=== PATIENT | female | born 1995 | race Caucasian/White ===

== ENCOUNTER 2018-11-23 07:19 | Day surgery (SDC) | payer OTHER ==
[2018-11-21 11:39] VITALS: BMI 21.4
[~2018-11-23 07:19] MED LIST: LACTATED RINGERS 1,000 ML IV SCH; LIDOCAINE 1% 20 ML VIAL (10MG/ML) FOR IV START INTRADERMA PRN
[2018-11-23 07:38] VITALS: TEMP 97.1
[2018-11-23] MEDS ORDERED: PROPOFOL 10 MG/ML 20 ML VIAL IV ONE (07:44)
--- NOTE | 2018-11-23 07:49 | P.GSHP ---
History of Present Illness H&P Date: 11/23/18 Chief Complaint: GERD, colitis This is a 23-year-old female presents today for EGD and colonoscopy. Patient issues with GERD and colitis. Past Medical History Past Medical History: GERD/Reflux Additional Past Medical History / Comment(s): migraine headaches, frequent left sided abd. pain, gas, bloating, N/V @times History of Any Multi-Drug Resistant Organisms: None Reported Past Surgical History: No Surgical Hx Reported Past Anesthesia/Blood Transfusion Reactions: Family History of Problems w/ Anesthesia Additional Past Anesthesia/Blood Transfusion Reaction / Comment(s): states anesthesia affects her mom's bipolar issue Smoking Status: Never smoker - Past Family History Mother Family Medical History: No Reported History Medications and Allergies Home Medications Medication Instructions Recorded Confirmed Type Cyclobenzaprine [Flexeril] 5 mg PO TID PRN 11/21/18 11/23/18 History Famotidine [Pepcid] 20 mg PO BID 11/21/18 11/23/18 History Sertraline [Zoloft] 25 mg PO DAILY 11/21/18 11/23/18 History Allergies Allergy/AdvReac Type Severity Reaction Status Date / Time No Known Allergies Allergy Verified 11/23/18 07:28 Surgical - Exam Vital Signs Temp Pulse Resp BP Pulse Ox 97.1 F L 91 17 150/81 99 11/23/18 07:35 11/23/18 07:35 11/23/18 07:35 11/23/18 07:35 11/23/18 07:35 - General well developed, well nourished, no distress - Eyes PERRL - ENT normal pinna - Neck no masses - Respiratory normal expansion - Cardiovascular Rhythm: regular - Abdomen Abdomen: soft, non tender Assessment and Plan Assessment: GERD, colitis. We'll perform EGD and colonoscopy.
[2018-11-23] MEDS ORDERED: ONDANSETRON 4 MG/2 ML VIAL IVP ONE (08:22)
[2018-11-23 08:35] VITALS: RESP 16
[2018-11-23 08:49] VITALS: BP 116/79; PULSE 86
--- NOTE | 2018-12-04 14:28 | P.OP ---
Date of Procedure: 11/23/18 Preoperative Diagnosis: GERD Colitis Postoperative Diagnosis: GERD Colitis Procedure(s) Performed: EGD Colonoscopy Anesthesia: MAC Surgeon: Robin Rivas Pathology: other (Antral, esophagus) Condition: stable Disposition: PACU Description of Procedure: N PROCEDURE: The patient was placed on the endoscopy table in the lateral position. Digital rectal examination was performed which revealed no abnormalities. Flexible colonoscope was then placed in the patient's anus and passed throughout the entire colon. The ileocecal valve was visualized. The cecum, ascending, transverse, descending and sigmoid colon were normal. The rectum was normal as well. There were no masses, polyps or diverticula noted in the entire colon. Next, the gastroscope placed oropharynx and passed in the esophagus and into the stomach. Scope then placed through the pylorus. The first and second portion of duodenum. Normal. Scope was then brought back the antrum and this was mildly inflamed. A biopsies performed. The scope was then retroflexed and the remainder of the stomach appeared normal. The GE junction was at 47 is. The distal esophagus appeared mildly inflamed a biopsies performed. The proximal esophagus appeared normal. Scope was withdrawn for patient.
== END 2018-11-23 09:03 | disposition home or self-care (01) ==
LOC: ORWHC2ENDO 07:19
PROVIDERS: ATTEND Surgery
DX: K21.9 Gastro-esophageal reflux disease without esophagitis (principal); K52.9 Noninfective gastroenteritis and colitis, unspecified; K29.50 Unspecified chronic gastritis without bleeding; K20.8 Other esophagitis; K22.8 Other specified diseases of esophagus; G43.909 Migraine, unspecified, not intractable, without status migrainosus; F39 Unspecified mood [affective] disorder; Z79.899 Other long term (current) drug therapy
CPT/HCPCS: 45378; 43239; 81025; 88305; J2405; J2704

== ENCOUNTER → 2018-11-30 | Outpatient (CLI) | payer OTHER | END | disposition home or self-care (01) | LOC: LABPAT 15:38 | PROVIDERS: ATTEND Surgery | DX: Z01.812 Encounter for preprocedural laboratory examination (principal); K21.9 Gastro-esophageal reflux disease without esophagitis | CPT/HCPCS: 86850; 86900; 86901 ==

== ENCOUNTER → 2018-12-06 | Outpatient (CLI) | payer OTHER ==
[2018-12-06 13:05] LABS: HCT 42.4 % (34.0-46.0); HGB 13.7 gm/dL (11.4-16.0); MCH 28.8 pg (25.0-35.0); MCHC 32.3 g/dL (31.0-37.0); MCV 89.2 fL (80.0-100.0); Mean Platelet Volume 7.6; Platelet Count 280 k/uL (150-450); RBC 4.75 m/uL (3.80-5.40); RDW 14.5 % (11.5-15.5); WBC 6.7 k/uL (3.8-10.6)
== END | disposition home or self-care (01) ==
LOC: LABPAT 12:31
PROVIDERS: ATTEND Surgery
DX: Z01.812 Encounter for preprocedural laboratory examination (principal); K46.9 Unspecified abdominal hernia without obstruction or gangrene
CPT/HCPCS: 36415; 85027

== ENCOUNTER 2018-12-07 06:36 | Observation (INO) | payer OTHER ==
[2018-12-04 14:49] VITALS: BMI 21.4
[~2018-12-07 06:36] MED LIST changes: +DEXAMETHASONE SOD PHOSPHATE 10 MG/ML 1 ML VIAL IV ONE; +HEPARIN SODIUM,PORCINE 5,000 UNIT/ML 1 ML VIAL SQ ONE; +HYDROmorphone 0.5 MG/0.5 ML SYRINGE IVP PRN; -LIDOCAINE 1% 20 ML VIAL (10MG/ML) FOR IV START INTRADERMA PRN; +MIDAZOLAM 2 MG/2 ML VIAL IV PRN; +ONDANSETRON 4 MG/2 ML VIAL IVP ONE; +ceFAZolin IN SWFI 2 GM/20 ML SYRINGE IVP ONE
[2018-12-07] MEDS ORDERED: LIDOCAINE 1% 20 ML VIAL (10MG/ML) FOR IV START INTRADERMA ONE (07:13)
[2018-12-07] MEDS ORDERED: FAMOTIDINE 20 MG/2 ML VIAL IV ONE (07:23)
[2018-12-07] MEDS ORDERED: SCOPOLAMINE 1.5MG/72HR PATCH TRANSDERM ONE (07:23)
[2018-12-07] MEDS ORDERED: METOCLOPRAMIDE 5 MG/ML 2 ML VIAL IVP ONE (07:23)
[2018-12-07] MEDS ORDERED: MIDAZOLAM 2 MG/2 ML VIAL ONE (07:44)
[2018-12-07] MEDS ORDERED: LIDOCAINE 1% INJ 10MG/ML (20 ML MDV) ONE (07:44)
[2018-12-07] MEDS ORDERED: NEOSTIGMINE 1 MG/ML 10 ML VIAL ONE (07:44)
[2018-12-07] MEDS ORDERED: GLYCOPYRROLATE 0.2 MG/ML 2 ML VIAL ONE (07:44)
[2018-12-07] MEDS ORDERED: fentaNYL (PF) 50 MCG/ML 2 ML AMP ONE (07:44)
[2018-12-07] MEDS ORDERED: ROCURONIUM BROMIDE 10 MG/ML 10 ML VIAL IV ONE (07:44)
[2018-12-07] MEDS ORDERED: PROPOFOL 10 MG/ML 20 ML VIAL IV ONE (07:44)
[2018-12-07] MEDS ORDERED: SUCCINYLCHOLINE CHLORIDE 100 MG/5 ML SYR IV ONE (07:44)
--- NOTE | 2018-12-07 07:50 | P.GSHP ---
History of Present Illness H&P Date: 12/07/18 Chief Complaint: GERD This a 23-year-old female referred from Dr. Vega. The patient has had long- standing problems with reflux esophagitis. The patient underwent recent EGD is found have evidence of esophagitis. Patient has been well informed on the pr ocedure of laparoscopic Cierra fundoplication. The patient is aware the risk of the conversion to the open procedure, risk of injury to the stomach, liver and spleen. The patient is also a risk of recurrent GERD and dysphagia symptoms. The patient understands there is a postoperative diet of full liquids for 2 weeks after surgery. Past Medical History Past Medical History: GERD/Reflux Additional Past Medical History / Comment(s): migraine headaches, frequent left sided abd. pain, gas, bloating, N/V @times History of Any Multi-Drug Resistant Organisms: None Reported Past Surgical History: No Surgical Hx Reported Additional Past Surgical History / Comment(s): COLONOSCOPY/EGD-11/23/18 Past Anesthesia/Blood Transfusion Reactions: Family History of Problems w/ Anesthesia Additional Past Anesthesia/Blood Transfusion Reaction / Comment(s): FELT LIKE SHE WAS HAVING A PNAIC ATTACK AFTER ANESTHESIA FOR COLONOSCOPY. states anesthesia affects her mom's bipolar issue Smoking Status: Never smoker - Past Family History Mother Family Medical History: No Reported History Medications and Allergies Home Medications Medication Instructions Recorded Confirmed Type Cyclobenzaprine [Flexeril] 5 mg PO TID PRN 11/21/18 12/07/18 History Famotidine [Pepcid] 20 mg PO BID 11/21/18 12/07/18 History Sertraline [Zoloft] 25 mg PO DAILY 11/21/18 12/07/18 History Allergies Allergy/AdvReac Type Severity Reaction Status Date / Time No Known Allergies Allergy Verified 12/07/18 07:01 Surgical - Exam Vital Signs Temp Pulse Resp BP Pulse Ox 97 F L 71 16 139/87 99 12/07/18 06:55 12/07/18 06:55 12/07/18 06:55 12/07/18 06:55 12/07/18 06:55 - General well developed, well nourished, no distress - Eyes PERRL - ENT normal pinna - Neck no masses - Respiratory normal expansion - Cardiovascular Rhythm: regular - Abdomen Abdomen: soft, non tender Assessment and Plan Assessment: GERD. We'll perform laparoscopic Cierra fundoplication.
[2018-12-07] MEDS ORDERED: BUPIVACAIN-EPI 0.25%-1:200,000 30 ML VIAL SQ ONE (08:20)
[2018-12-07] MEDS ORDERED: MEPERIDINE 50 MG/ML SYRINGE IVP ONE (09:29)
[2018-12-07] MEDS ORDERED: ONDANSETRON 4 MG/2 ML VIAL IVP ONE (09:39)
[2018-12-07] MEDS ORDERED: HYDROmorphone 0.5 MG/0.5 ML SYRINGE IVP PRN (11:50)
[2018-12-07] MEDS ORDERED: ONDANSETRON 4 MG/2 ML VIAL IVP PRN (14:14)
[2018-12-07] MEDS: HYDROmorphone 1 MG/ML 1 ML SYRINGE IVP PRN ×3 (14:35→22:19)
--- NOTE | 2018-12-07 15:21 | FL ---
EXAMINATION TYPE: FL esophagus cervic/pharynx DATE OF EXAM: 12/07/2018 LIMITED UGI-ESOPHAGRAM: CLINICAL HISTORY: Hiatal hernia with epigastric pain TECHNIQUE: Limited esophagram is performed utilizing 50 oz of Isovue-370. A total of 28 seconds of f luoroscopic time was utilized during procedure. 17 spot images are saved to PACS. FINDINGS: The patient swallowed contrast without difficulty or delay. Esophageal peristalsis and mo tility are within normal limits. There is satisfactory flow of contrast along the diaphragmatic hiatu s into the stomach, there is no evidence of contrast extravasation to suggest leak. Mild delay is pre sent. No persistent hiatal hernia is seen. Patient remains asymptomatic. IMPRESSION: No evidence of leak or significant obstruction status post Zohaib fundoplication surgery earlier today.
--- NOTE | 2018-12-07 18:07 | P.CONS ---
History of Present Illness - Reason for Consult Recommendations regarding antidepressant medications - History of Present Illness His is a pleasant 23-year-old female admitted for laparoscopic Cierra fundoplication. Patient's axis underwent surgery is comparing of pain in the epigastric area which is expected. Patient had effusions nausea vomiting dysuria. Review of Systems REVIEW OF SYSTEMS: CONSTITUTIONAL: No fever, no malaise, no fatigue. HEENT: No recent visual problems or hearing problems. Denied any sore throat. CARDIOVASCULAR: No chest pain, orthopnea, PND, no palpitations, no syncope. PULMONARY: No shortness of breath, no cough, no hemoptysis. GASTROINTESTINAL: As mentioned in HPI NEUROLOGICAL: No headaches, no weakness, no numbness. HEMATOLOGICAL: Denies any bleeding or petechiae. GENITOURINARY: Denies any burning micturition, frequency, or urgency. MUSCULOSKELETAL/RHEUMATOLOGICAL: Denies any joint pain, swelling, or any muscle pain. ENDOCRINE: Denies any polyuria or polydipsia. The rest of the 14-point review of systems is negative. Past Medical History Past Medical History: GERD/Reflux Additional Past Medical History / Comment(s): migraine headaches, frequent left sided abd. pain, gas, bloating, N/V @times History of Any Multi-Drug Resistant Organisms: None Reported Past Surgical History: No Surgical Hx Reported Additional Past Surgical History / Comment(s): COLONOSCOPY/EGD-11/23/18 Past Anesthesia/Blood Transfusion Reactions: Family History of Problems w/ Anesthesia Additional Past Anesthesia/Blood Transfusion Reaction / Comm: FELT LIKE SHE WAS HAVING A PNAIC ATTACK AFTER ANESTHESIA FOR COLONOSCOPY. states anesthesia affects her mom's bipolar issue Smoking Status: Never smoker - Past Family History Mother Family Medical History: No Reported History Medications and Allergies Home Medications Medication Instructions Recorded Confirmed Type Cyclobenzaprine [Flexeril] 5 mg PO TID PRN 11/21/18 12/07/18 History Famotidine [Pepcid] 20 mg PO BID 11/21/18 12/07/18 History Sertraline [Zoloft] 25 mg PO DAILY 11/21/18 12/07/18 History Allergies Allergy/AdvReac Type Severity Reaction Status Date / Time No Known Allergies Allergy Verified 12/07/18 14:20 Physical Exam Vitals: Vital Signs Temp Pulse Resp BP Pulse Ox 12/07/18 13:55 96 20 149/87 96 12/07/18 12:55 98.2 F 104 H 16 137/91 97 12/07/18 12:25 99 16 148/86 97 12/07/18 11:55 113 H 20 149/100 97 12/07/18 11:40 107 H 16 142/87 96 12/07/18 11:08 101 H 20 134/92 98 12/07/18 10:53 89 16 140/90 99 12/07/18 10:38 96.7 F L 87 16 132/84 97 12/07/18 10:15 97 16 135/80 100 12/07/18 10:00 99 16 133/79 100 12/07/18 09:45 84 16 140/82 100 12/07/18 09:30 93 16 151/82 100 12/07/18 09:15 90 16 142/79 100 12/07/18 09:05 97.1 F L 103 H 16 127/76 94 L 12/07/18 06:55 97 F L 71 16 139/87 99 Intake and Output 12/07/18 12/07/18 12/07/18 06:59 14:59 22:59 Intake Total 1050 Output Total 245 225 Balance 805 -225 Intake: IV 1050 Output: Urine 240 225 Estimated Blood Loss 5 Other: # Voids 1 PHYSICAL EXAMINATION: GENERAL: The patient is alert and oriented x3, not in any acute distress. Well developed, well nourished. HEENT: Pupils are round and equally reacting to light. EOMI. No scleral icterus. No conjunctival pallor. Normocephalic, atraumatic. No pharyngeal erythema. No thyromegaly. CARDIOVASCULAR: S1 and S2 present. No murmurs, rubs, or gallops. PULMONARY: Chest is clear to auscultation, no wheezing or crackles. ABDOMEN: Soft, nontender, nondistended, normoactive bowel sounds. No palpable organomegaly. Surgical site area appeared to be clean MUSCULOSKELETAL: No joint swelling or deformity. EXTREMITIES: No cyanosis, clubbing, or pedal edema. NEUROLOGICAL: Gross neurological examination did not reveal any focal deficits. SKIN: No rashes. Assessment and Plan Plan: -Status post laparoscopic Cierra fundoplication, postop management as primary service pain management as per primary service DVT prophylaxis as per primary service patient will be started on famotidine -Depression patient will be started on Zoloft -Anxiety disorder.
[2018-12-07] MEDS: HYDROcodone/APAP 5-325MG 1 EACH TAB PO PRN (19:59)
[2018-12-07] MEDS: CYCLOBENZAPRINE 5 MG TAB PO PRN (19:59)
[2018-12-07] MEDS: D5-0.45% NACL WITH KCL 20MEQ/L 1,000 ML IV SCH (20:00)
[2018-12-07] MEDS: FAMOTIDINE 20 MG TAB PO SCH (20:01)
[2018-12-08] MEDS: KETOROLAC 30 MG/ML 1 ML VIAL IVP PRN ×2 (01:06→11:32)
[2018-12-08] MEDS: HYDROmorphone 1 MG/ML 1 ML SYRINGE IVP PRN ×4 (01:08→08:47)
[2018-12-08] MEDS: D5-0.45% NACL WITH KCL 20MEQ/L 1,000 ML IV SCH ×3 (03:22→15:00)
[2018-12-08] MEDS: HYDROcodone/APAP 5-325MG 1 EACH TAB PO PRN ×3 (06:25→15:13)
[2018-12-08] MEDS: FAMOTIDINE 20 MG TAB PO SCH (08:46)
[2018-12-08] MEDS ORDERED: ENOXAPARIN 40 MG/0.4 ML SYRINGE SQ SCH (09:00)
[2018-12-08] MEDS ORDERED: SERTRALINE 25 MG TAB PO SCH (09:00)
[2018-12-08] MEDS: CYCLOBENZAPRINE 5 MG TAB PO PRN (11:32)
[2018-12-08 13:22] VITALS: BP 123/80; PULSE 61; RESP 16; TEMP 98.4
--- NOTE | 2018-12-08 13:26 | P.DS ---
Providers Date of admission: 12/07/18 18:01 Expected date of discharge: 12/08/18 Attending physician: Robin Rivas Consults: 12/07/18 14:16 Consult Physician Routine Consulting Provider: Donavon Rodas Consult Reason/Comments: med manage Do you want consulting provider notified?: Yes [facility] Course: This is a 23-year-old female who underwent laparoscopic Cierra fundal plication. Patient was discharged home on operative day 1. She she was doing well. She had no significant complaints. Procedures: Laparoscopic Cierra fundal plication Patient Condition at Discharge: Good Plan - Discharge Summary Discharge Rx Participant: Yes New Discharge Prescriptions: New Docusate [Colace] 100 mg PO BID #20 capsule HYDROcodone/APAP 5-325MG [[place] 5-325] 1 tab PO Q6HR PRN #10 tab PRN Reason: Pain No Action Cyclobenzaprine [Flexeril] 5 mg PO TID PRN PRN Reason: hip pain Sertraline [Zoloft] 25 mg PO DAILY Famotidine [Pepcid] 20 mg PO BID Discharge Medication List Cyclobenzaprine [Flexeril] 5 mg PO TID PRN 11/21/18 [History] Famotidine [Pepcid] 20 mg PO BID 11/21/18 [History] Sertraline [Zoloft] 25 mg PO DAILY 11/21/18 [History] Docusate [Colace] 100 mg PO BID #20 capsule 12/08/18 [Rx] HYDROcodone/APAP 5-325MG [[place] 5-325] 1 tab PO Q6HR PRN #10 tab 12/08/18 [Rx] Follow up Appointment(s)/Referral(s): Robin Rivas MD [STAFF PHYSICIAN] - 12/18/18 9:10 am Activity/Diet/Wound Care/Special Instructions: Continue full liquids as tolerated. Continue pain medications as needed. no tub baths swimming pools or hot tubs, showers are okay. no driving on narcotic pain medication
--- NOTE | 2018-12-08 16:02 | P.PN ---
Subjective 18-year-old admitted for laparoscopic Cierra fundoplication post surgery patient is able to tolerate diet well and patient is passing gas and the patient is complaining of some pain and burning in the surgical site area where she had ports for laparoscopy. Pain and inflammation is expected to improve Few days and patient was counseled regarding this and patient is okay to be discharged from medical perspective Constitutional: Denied any fatigue denied any fever. Cardio vascular: denied any chest pain, palpitations Gastrointestinal denied any nausea vomiting Pulmonary: Denied any shortness of breath cough Neurologic denied any new focal deficits All inpatient medications were reviewed and appropriate changes in these medications as dictated in the interval history and assessment and plan. Objective - Vital Signs Vital signs: Vital Signs Temp 98.4 F 12/08/18 12:36 Pulse 61 12/08/18 12:36 Resp 16 12/08/18 12:36 BP 123/80 12/08/18 12:36 Pulse Ox 97 12/08/18 12:36 Intake & Output 12/07/18 12/08/18 12/08/18 18:59 06:59 18:59 Intake Total 1050 120 Output Total 470 250 Balance 580 -250 120 Weight 56.699 kg Intake: IV 1050 Oral 120 Output: Urine 465 250 Estimated Blood Loss 5 Other: # Voids 1 1 1 - Exam PHYSICAL EXAMINATION: GENERAL: The patient is alert and oriented x3, not in any acute distress. Well developed, well nourished. HEENT: Pupils are round and equally reacting to light. EOMI. No scleral icterus. No conjunctival pallor. Normocephalic, atraumatic. No pharyngeal erythema. No thyromegaly. CARDIOVASCULAR: S1 and S2 present. No murmurs, rubs, or gallops. PULMONARY: Chest is clear to auscultation, no wheezing or crackles. ABDOMEN: Soft, nontender, nondistended, normoactive bowel sounds. No palpable organomegaly. Surgical site area appeared to be clean MUSCULOSKELETAL: No joint swelling or deformity. EXTREMITIES: No cyanosis, clubbing, or pedal edema. NEUROLOGICAL: Gross neurological examination did not reveal any focal deficits. SKIN: No rashes. Assessment and Plan Plan: -Status post laparoscopic Cierra fundoplication, postop management as primary service pain management as per primary service -Depression patient will be started on Zoloft -Anxiety disorder.
== END 2018-12-08 16:15 | disposition home or self-care (01) ==
LOC: OR 06:36 → 6PED 09:36 → OR 18:01 → 6PED 18:01
PROVIDERS: ADMIT Surgery; ATTEND Surgery
DX: K21.0 Gastro-esophageal reflux disease with esophagitis (principal); F32.9 Major depressive disorder, single episode, unspecified; F41.9 Anxiety disorder, unspecified; Z79.899 Other long term (current) drug therapy; Z81.8 Family history of other mental and behavioral disorders
CPT/HCPCS: 43280; 96372; 81025; 86900; 86901; 86850; 74210; G0378 ×2; J2250; J1644; J1100; J2710; J2765; J2175; J2405 ×2; J2001; J1650; J3010; J1885; J1170 ×3; J0330; J2704; J0690

== ENCOUNTER 2019-05-13 15:09 | Emergency (ER) | payer OTHER ==
[2019-05-13 15:20] VITALS: RESP 18
[2019-05-13] MEDS ORDERED: PROPARACAINE 0.5% OPHTH DROPS 15 ML BTL RIGHT EYE STA (15:37)
--- NOTE | 2019-05-13 16:01 | ED ---
General Adult HPI - General Chief complaint: Eye Problems Stated complaint: Eye infection Time Seen by Provider: 05/13/19 15:29 Source: patient, RN notes reviewed Mode of arrival: ambulatory Limitations: no limitations - History of Present Illness Initial comments: Patient presents to the emergency department for a chief complaint of right eye pain. States that for the past 2-1/2 weeks she has had swelling of the eyelid as well as a red eye. States her eye feels irritated. Denies any blurry vision. Patient does not wear contacts or glasses. Denies fevers or chills. Patient did have purulent drainage from the eye.Patient has no other complaints at this time including shortness of breath, chest pain, abdominal pain, nausea or vomiting, headache, or visual changes. - Related Data Home Medications Medication Instructions Recorded Confirmed Cyclobenzaprine [Flexeril] 5 mg PO TID PRN 11/21/18 12/07/18 Famotidine [Pepcid] 20 mg PO BID 11/21/18 12/07/18 Sertraline [Zoloft] 25 mg PO DAILY 11/21/18 12/07/18 Previous Rx's Medication Instructions Recorded Docusate [Colace] 100 mg PO BID #20 capsule 12/08/18 HYDROcodone/APAP 5-325MG [[place] 1 tab PO Q6HR PRN #10 tab 12/08/18 5-325] Allergies Allergy/AdvReac Type Severity Reaction Status Date / Time No Known Allergies Allergy Verified 05/13/19 15:18 Review of Systems ROS Statement: Those systems with pertinent positive or pertinent negative responses have been documented in the HPI. ROS Other: All systems not noted in ROS Statement are negative. Past Medical History Past Medical History: GERD/Reflux Additional Past Medical History / Comment(s): migraine headaches, frequent left sided abd. pain, gas, bloating, N/V @times History of Any Multi-Drug Resistant Organisms: None Reported Past Surgical History: No Surgical Hx Reported Additional Past Surgical History / Comment(s): COLONOSCOPY/EGD-11/23/18 Past Anesthesia/Blood Transfusion Reactions: Family History of Problems w/ Anesthesia Additional Past Anesthesia/Blood Transfusion Reaction / Comment(s): FELT LIKE SHE WAS HAVING A PNAIC ATTACK AFTER ANESTHESIA FOR COLONOSCOPY. states anesthesia affects her mom's bipolar issue Past Psychological History: Anxiety Smoking Status: Never smoker Past Alcohol Use History: Occasional Past Drug Use History: Marijuana - Past Family History Mother Family Medical History: No Reported History General Exam Limitations: no limitations General appearance: alert, in no apparent distress Head exam: Present: atraumatic, normocephalic, normal inspection Eye exam: Present: PERRL (Both pupils are equally reactive), EOMI, conjunctival injection (Erythema noted of the right conjunctiva), periorbital swelling (Patient has mild edema noted of the right eyelid, ever no induration, erythema, or tenderness to the eyelid that would be indicative of a periorbital cellulitis.). Absent: normal appearance, scleral icterus Expanded Eyelids: Swelling: Right Sclera/Conjunctival: Injection: Right Visual acuity (R) = 20/: 25 Visual acuity (L) = 20/: 30 With correction: No IOP (R) in mmH IOP (L) in mmH IOP measured with: Tonopen ENT exam: Present: normal exam, mucous membranes moist Neck exam: Present: normal inspection. Absent: tenderness, meningismus, lymphadenopathy Respiratory exam: Present: normal lung sounds bilaterally. Absent: respiratory distress, wheezes, rales, rhonchi, stridor Cardiovascular Exam: Present: regular rate, normal rhythm, normal heart sounds. Absent: systolic murmur, diastolic murmur, rubs, gallop, clicks Neurological exam: Present: alert Course Vital Signs 05/13/19 15:18 Temperature 97.5 F L Pulse Rate 70 Respiratory 18 Rate Blood Pressure 138/93 O2 Sat by Pulse 98 Oximetry Medical Decision Making - Medical Decision Making Patient presents for eye discomfort for 17 days. Patient has mild edema present to the right upper eyelid however this is not erythematous, nonindurated, and nontender. No evidence of a periorbital cellulitis. Patient does have conjunctival injection noted of the right conjunctivitis. Pupil is reactive. I did stain the eye with fluorescein stain and use Wood's lamp, no evidence for abscess or abrasion. Visual acuity is 20/25 in the right eye. Pressure of the right eye is 17, left eye 16. Patient likely has a conjunctivitis. Will be treated with erythromycin ointment given no history of contact usage. However I do want patient to follow up closely with the saloonkeeper. She does agree to call tomorrow.I discussed this case with attending Dr. Navas who agrees with this assessment and treatment plan. Disposition Clinical Impression: Conjunctivitis Disposition: HOME SELF-CARE Condition: Good Instructions (If sedation given, give patient instructions): Conjunctivitis (ED) Additional Instructions: Please use erythromycin ointment every 6 hours for the next 7 days. Follow-up with the myalgia tomorrow. Return to the emergency Department if you're having worsening symptoms or symptoms are not improving. Is patient prescribed a controlled substance at d/c from ED?: No Referrals: Callum Levy MD [STAFF PHYSICIAN] - 1-2 days Time of Disposition: 16:32
[2019-05-13] MEDS ORDERED: ERYTHROMYCIN 5 MG/GM OPHTH OINT 1 GM TUBE BOTH EYES STA (16:18)
[2019-05-13 16:42] VITALS: BP 132/75; PULSE 71; TEMP 98
== END 2019-05-13 16:40 | disposition home or self-care (01) ==
LOC: EC 15:09
DX: H10.9 Unspecified conjunctivitis (principal); K21.9 Gastro-esophageal reflux disease without esophagitis; F41.9 Anxiety disorder, unspecified; Z79.899 Other long term (current) drug therapy
CPT/HCPCS: 99283

== ENCOUNTER → 2023-11-23 | Outpatient (CLI) | payer OTHER ==
--- NOTE | 2023-11-24 05:10 | MR ---
EXAMINATION TYPE: MR sacroiliac joints wo con DATE OF EXAM: 11/23/2023 COMPARISON: None. 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 Standard multiplanar, multisequence MRI departmental protocol Multiplanar, multisequence images of the pelvis were acquired without contrast. FINDINGS: Sacroiliac joints appear symmetric and within normal limits. No suspicious asymmetric erosi ve changes or areas of increased T2 signal to suggest abnormal osseous edema are identified. No signi ficant spurring is present. Sacral alar are intact. Tiny amount of free fluid in the pelvic cul-de-sac is presumed physiologic sagittal image 18. Retrofl exed uterus is seen. Appendix is noted within normal limits seen best on axial image 23. IMPRESSION: No MRI evidence for active or chronic inflammatory changes to the sacroiliac joints on no ncontrast MRI images.
== END | disposition home or self-care (01) ==
LOC: RADMRIMAIN 18:25
PROVIDERS: ATTEND Internal Medicine Rheumatology
DX: M14.88 Arthropathies in other specified diseases classified elsewhere, vertebrae (principal)
CPT/HCPCS: 72195